=== PATIENT | female | born 1965 | race Caucasian/White ===

== ENCOUNTER → 2017-09-27 | Emergency (ER) | payer OTHER ==
[~2017-09-27] VITALS: Ht 121.9 cm; Wt 84.4 kg
[~2017-09-27] MED LIST: OSEL75CA PO
== END | disposition home or self-care (01) ==
LOC: ER 10:21
DX: R50.9 Fever, unspecified (principal)

== ENCOUNTER 2018-08-21 10:57 | Emergency (ER) | payer OTHER ==
[~2018-08-21] VITALS: Ht 149.9 cm; Wt 84.4 kg
[2018-08-21] MEDS ORDERED: OSEL75CA PO (15:55)
[2018-08-21] MEDS ORDERED: TUSSI PRES-B L120 M1 PO (15:55)
== END 2018-08-21 15:58 | disposition home or self-care (01) ==
LOC: ER 10:57
DX: B34.9 Viral infection, unspecified (principal)